=== PATIENT | male | born 1970 | race Caucasian/White ===

== ENCOUNTER 2022-06-04 18:03 | Emergency (ER) | payer SELFPAY ==
--- NOTE | 2022-06-04 18:24 | ED Upper Extremity ---
General Chief Complaint: Laceration Stated Complaint: R ARM LAC Source: patient Exam Limitations: no limitations History of Present Illness Date Seen by Provider: Jun 04, 2022 Time Seen by Provider: 18:06 Initial Comments 51-year-old male with no pertinent past medical history coming in after he was working on some windows on a ladder with a razor blade, slipped, and cut his right forearm with a razor blade. Occurred just prior to arrival. Tetanus shot up-to-date. He is having mild, constant, sharp pain in his right forearm which nothing seems to make better or worse. He is otherwise denying any other acute complaints Allergies and Home Medications Allergies Coded Allergies: Morphine (Verified Allergy, 06/04/22) Patient Home Medication List Home Medication List Reviewed: Yes Review of Systems Constitutional: No fever EENTM: no symptoms reported Respiratory: no symptoms reported Gastrointestinal: no symptoms reported Genitourinary: no symptoms reported Musculoskeletal: no symptoms reported Skin: see HPI Psychiatric/Neurological: No Symptoms Reported All Other Systems Reviewed Negative Unless Noted: Yes Past Scaedya-Iogcsj-Zwgjmr Hx Patient Social History Tobacco Use?: Yes Tobacco type used: Cigarettes Smoking Status: Current Everyday Smoker Use of E-Cig and/or Vaping dev: No Substance use?: No Alcohol Use?: Yes Alcohol Frequency: Once in a while Past Medical History Surgeries: No Physical Exam Vital Signs Capillary Refill : Height, Weight, BMI Height: '" Weight: lbs. oz. kg; BMI Method: General Appearance: WD/WN, no apparent distress HEENT: PERRL/EOMI, normal ENT inspection, pharynx normal Neck: non-tender, full range of motion, supple, normal inspection Cardiovascular: regular rate, rhythm, no edema, no murmur Respiratory: chest non-tender, lungs clear, normal breath sounds, no respiratory distress, no accessory muscle use Gastrointestinal: normal bowel sounds, non tender, soft; No distended, No guarding, No rebound Back: normal inspection Elbow/Forearm: Right (2 cm laceration that goes to subcutaneous tissue to the right forearm that is hemostatic, no tendons visible, neurovascularly intact) Neurologic/Tendon: normal sensation, normal motor functions, normal tendon functions Neurologic/Psychiatric: no motor/sensory deficits, alert, normal mood/affect Skin: normal color, warm/dry Lymphatic: no adenopathy Procedures/Interventions Wound Location: Upper Extremities Other Wound Location right forearm Wound Length (cm): 2 Wound's Depth, Shape: sub Q Wound Explored: clean Irrigated w/ Saline (ccs): 500 Anesthesia: 1% Lidocaine Volume Anesthetic (ccs): 3 Suture: Ethlion Suture Size: 4-0 Number of Sutures: 1 Sterile Dressing Applied?: Yes Progress 1 single running suture performed Progress/Results/Core Measures Progress Progress Note : Progress Note Presented for laceration repair. He was superficial into the subcutaneous tissue with no tendon damage. Neurovascularly intact. Bleeding controlled. Tetanus is up-to-date. It was cleaned and closed. Follow-up in 1 week to get them out. Departure Impression Primary Impression: Laceration of forearm, right Qualified Codes: S51.811A - Laceration without foreign body of right forearm, initial encounter Disposition: HOME, SELF-CARE Condition: Stable Departure-Patient Inst. Decision time for Depature: 18:23 Referrals: NO,LOCAL PHYSICIAN (PCP/Family) Primary Care Physician Patient Instructions: Laceration Repair With Stitches ED Add. Discharge Instructions: The stitches need to come out in 1 week. He needs to see a doctor for wound check if you have any redness spreading up your arm, pus coming out, or new fever. You can come back to the ER to get them out if you do not have a doctor. Do not get the stitches wet at all for the next couple of days. After that water can run over it briefly, but do not submerge it in any type of water. You do not need to scrub it or anything, just keep it covered and clean. Take ibuprofen or Tylenol as needed for pain. Work/School Note: Work Release Form Date Seen in the Emergency Department: Jun 04, 2022 Return to Work: Jun 05, 2022 Restrictions: No Restrictions NAVEEN DONALD MD Jun 04, 2022 18:24
[2022-06-04 18:27] VITALS: BP 116/81
== END 2022-06-04 18:32 | disposition home or self-care (01) ==
LOC: ER FS 18:05
DX: S51.811A Laceration without foreign body of right forearm, initial encounter (principal); F17.210 Nicotine dependence, cigarettes, uncomplicated; W26.8XXA Contact with other sharp object(s), not elsewhere classified, initial encounter; Y99.0 Civilian activity done for income or pay; Y92.59 Other trade areas as the place of occurrence of the external cause
CPT/HCPCS: 12001